=== PATIENT | female | born 1975 | race American Indian/Alaskan Native ===

== ENCOUNTER 2018-06-07 08:05 | Emergency (ER) | payer SELFPAY ==
[2018-06-07 10:04] VITALS: BP 143/95
[2018-06-07] MEDS ORDERED: IBUPROFEN PO ONE (10:51)
--- NOTE | 2018-06-07 10:56 | Emergency Department Report ---
ED General Adult HPI - General Chief complaint: Neuro Symptoms/Deficit Stated complaint: NUMBNESS (L) SIDE OF FACE/BLURRED VISION/ABD PAIN Time Seen by Provider: 06/07/18 10:08 Source: patient Mode of arrival: Ambulatory Limitations: No Limitations - History of Present Illness Initial comments: 43-year-old -[place] female with a past medical history of diabetes comes in for facial pain and numbness to the left side of her face for blurred vision. Patient also complains of left side abdominal pain. States migraine, left side of face. Patient reports onset of symptoms were yesterday. Patient reports abdominal pain is crampy. She reports she's had a hysterectomy and does not feel that it is time for her to be ovulating. Patient states that she has severe pain in her left side of jaw. Patient has not taken anything for pain. She does admit that she takes Lantus and Humalog for her diabetes as well as gabapentin for her neuropathy. She reports that her primary care doctor is Dr. Huang at [place] but she did not have any money to make it that far to be seen by her primary care provider. -: days(s) (1) Location: head, face (side of jaw), abdomen, left Radiation: non-radiation (lower quadrant) Severity scale (0 -10): 10 Quality: sharp Consistency: constant (left side of jaw) Worsens with: none Associated Symptoms: headaches. denies: cough, fever/chills, loss of appetite, malaise, nausea/vomiting, syncope, weakness Treatments Prior to Arrival: none - Related Data Previous Rx's Medication Instructions Recorded Last Taken Type Amoxicillin [Trimox CAP] 500 mg PO Q8H #30 capsule 06/07/18 Unknown Rx Ibuprofen [Motrin 800 MG tab] 800 mg PO Q8HR PRN #21 tablet 06/07/18 Unknown Rx Allergies Allergy/AdvReac Type Severity Reaction Status Date / Time No Known Allergies Allergy Unverified 06/07/18 08:07 ED Review of Systems ROS: Stated complaint: NUMBNESS (L) SIDE OF FACE/BLURRED VISION/ABD PAIN Other details as noted in HPI Comment: All other systems reviewed and negative ED Past Medical Hx - Past Medical History Hx Diabetes: Yes - Surgical History Additional Surgical History: c/s, ankle - Social History Smoking Status: Current Every Day Smoker Substance Use Type: None - Medications Home Medications: Home Medications Medication Instructions Recorded Confirmed Last Taken Type Amoxicillin [Trimox CAP] 500 mg PO Q8H #30 capsule 06/07/18 Unknown Rx Ibuprofen [Motrin 800 MG tab] 800 mg PO Q8HR PRN #21 tablet 06/07/18 Unknown Rx ED Physical Exam - General Limitations: No Limitations General appearance: alert, in no apparent distress, other (A she was talking on the phone when this provider initially went to interview.) - Head Head exam: Present: atraumatic, normocephalic - Eye Eye exam: Present: normal appearance, PERRL, EOMI - ENT ENT exam: Present: mucous membranes moist - Neck Neck exam: Present: normal inspection, full ROM. Absent: tenderness, lymphaden opathy - Respiratory Respiratory exam: Present: normal lung sounds bilaterally. Absent: respiratory distress - Cardiovascular Cardiovascular Exam: Present: regular rate, normal rhythm. Absent: systolic murmur, diastolic murmur, rubs, gallop - GI/Abdominal GI/Abdominal exam: Present: soft, tenderness (lower quadrant), normal bowel sounds. Absent: distended, guarding, rebound - Extremities Exam Extremities exam: Present: normal inspection, full ROM - Back Exam Back exam: Present: normal inspection - Neurological Exam Neurological exam: Present: alert, oriented X3 - Expanded Neurological Exam Expanded Patient oriented to: Present: person, place, time Cranial nerves: EOM's Intact: Normal, Gag Reflex: Normal, Tongue Deviation: Normal, Nystagmus: Normal, Facial Sensation: Normal, Facial Palsy with Forehead Movement: Normal, Facial Palsy without Forehead Movement: Normal Cerebellar function: Finger to Nose: Normal, Heel to Mcf[place]en: Normal, Romberg: Normal Upper motor neuron: Ham Neglect: Normal, Pronator Drift: Normal, Sensory Extinction: Normal Sensory exam: Upper Extremity Light Touch: Normal, Upper Extremity Pin Prick: Normal, Upper Extremity Temperature: Normal, UE 2 Point Discrimination: Normal, Lower Extremity Light Touch: Normal, Lower Extremity Pin Prick: Normal, Lower Extremity Temperature: Normal, LE 2 Point Discrimination: Normal Motor strength exam: RUE: 4, LUE: 4, RLE: 4, LLE: 4 Best Eye Response ([place]): (4) open spontaneously Best Motor Response ([place]): (6) obeys commands Best Verbal Response ([place]): (5) oriented [place] Total: 15 - Psychiatric Psychiatric exam: Present: normal affect, normal mood - Skin Skin exam: Present: warm, dry, intact, normal color. Absent: rash ED Course Vital Signs 06/07/18 06/07/18 08:07 10:04 Temperature 98.1 F Pulse Rate 107 H 94 H Respiratory 18 Rate Blood Pressure 155/99 Blood Pressure 143/95 [Right] O2 Sat by Pulse 100 Oximetry ED Medical Decision Making - Lab Data Laboratory Tests 06/07/18 06/07/18 08:18 11:13 POC Glucose 241 H Urine Color Yellow Urine Turbidity Clear Urine pH 5.0 Ur Specific [place] 1.042 H Urine Protein <15 mg/dl Urine Glucose (UA) >=500 Urine Ketones 20 Urine Blood Neg Urine Nitrite Neg Ur Reducing Substances Not Reportable Urine Bilirubin Neg Urine Ictotest Not Reportable Urine Urobilinogen 2.0 Ur Leukocyte Esterase Neg Urine WBC (Auto) 1.0 Urine RBC (Auto) 1.0 Urine Mucus Few - Medical Decision Making Patient has been evaluated by this provider in [facility]. Patient was given ibuprofen 800 mg for pain management. Urinalysis shows no acute abnormalities. Blood sugar was stable at 241. Instruct the patient to continue with her chronic medications with Lantus Humalog gabapentin. Patient has sliding scale with her Humalog. Patient be discharged home with ibuprofen and discussed the patient to follow up with the dentist and her primary care provider. Critical care attestation.: If time is entered above; I have spent that time in minutes in the direct care of this critically ill patient, excluding procedure time. ED Disposition Clinical Impression: Mandible pain Disposition: DC-01 TO HOME OR SELFCARE Is pt being admited?: No Does the pt Need Aspirin: No Condition: Stable Additional Instructions: Please take pain medication and antibiotics as prescribed. He is very important free to follow-up with a dentist and her primary care provider for further evaluation. Prescriptions: Ibuprofen [Motrin 800 MG tab] 800 mg PO Q8HR PRN #21 tablet PRN Reason: Pain , Severe (7-10) Amoxicillin [Trimox CAP] 500 mg PO Q8H #30 capsule Referrals: PRIMARY CARE, [Primary Care Provider] - 3-5 Days Your, Provider [Other] - 3-5 Days [facility] [Outside] - 3-[address] [facility] [Outside] - 3-5 Days Forms: Work/School Release Form(ED)
[2018-06-07 13:31] LABS: Bilirubin,Urine NEG (Negative); Blood,Urine NEG (Negative); Color,Urine Yellow (Yellow); Mucus,Urine FEW /HPF; Protein,Urine <15 mg/dL mg/dL (Negative)
== END 2018-06-07 14:22 | disposition home or self-care (01) ==
LOC: ED 08:05
DX: R51 Headache (principal); R68.84 Jaw pain; R10.9 Unspecified abdominal pain; H57.89 Other specified disorders of eye and adnexa; E11.9 Type 2 diabetes mellitus without complications; F17.200 Nicotine dependence, unspecified, uncomplicated
CPT/HCPCS: 81001; 82962